=== PATIENT | female | born 1995 | race African-American/Black ===

== ENCOUNTER 2025-08-03 15:03 | Emergency (ER) | payer OTHER, SELFPAY ==
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
[2025-08-03 15:10] VITALS: BP 133/97; PULSE 107; RESP 14; TEMP 36.5; O2SAT 97
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
[2025-08-03] MEDS: HYDROcodone/acetaminophen (*CRX) 5-325 MG TABLET 1 TAB PO ×2 (15:34→19:53)
[2025-08-03 15:45] LABS: Add Urine Microscopic? NO; Appearance Urine Clear (Clear); Glucose Urine UA Negative (Negative); Leukocyte Esterase Ur Negative LEU/UL (Negative); Nitrate Urine Negative (Negative); Specific Grav Ur 1.003 (1.001-1.035)
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
--- OUTSIDE RECORDS SUMMARY | 2025-08-03 15:56 | XMS_ITS | Clinical Summary ---
Author Organization [facility] Address [address] [place] [address] Phone Care Team Providers Care Agricultural Engineer Name Role Phone Praveen Andrade MD Primary Care Provider [phone] Allergies Active Allergy Reactions Criticality Noted Date Comments Cefprozil Hives 01/28/2016 Cephalosporins Hives,Rash 10/01/2019 Reaction: Hives, Skin Rash, Codeine Nausea,Vomiting 03/14/2025 Latex Rash 10/01/2019 Naproxen Nausea 10/01/2019 Pineapple Hives 10/01/2019 Medications No known medications Active Problems No known active problems Encounters Date Type Department Care Team Description 07/04/2025 Telephone [facility] [address] [address] Elysia Anna Patient Outreach 07/04/2025 Telephone [facility] [address] [place] [address] Chari Atkins Patient Outreach 07/02/2025 5:57 PM CDT - 07/02/2025 6:46 PM CDT Emergency [facility] Emergency [address] [place] [address] Wilton Moreno DO Visit for suture removal Discharge Disposition: Discharged to home or Selfcare 07/02/2025 Travel from Last 3 Months Immunizations Immunization Administration Dates Next Due TDAP Vaccine 03/19/2024,03/25/2020 Family History Medical History Relation Name Comments Miscarriage Mother Relation Name Status Comments Mother Social History Tobacco Use Types Packs/Day Years Used Date Smoking Tobacco: Never Smokeless Tobacco: Never Tobacco Cessation:Counseling Given: Not Answered Alcohol Use Standard Drinks/Week Comments Yes 0 (1 standard drink = 0.6 oz pur e alcohol) Ocassional Sexually Active Control Partners Comments Yes Oral Contraceptive Male Comments No Sex and Gender Information Value Date Recorded Sex Assigned at Female 03/19/2024 3:44 AM CDT Legal Sex Female 9:32 PM CDT Gender Identity Female 03/19/2024 3:44 AM CDT Sexual Orientation Not on file Last Filed Vital Signs Vital Sign Reading Time Taken Comments Blood Pressure 128/75 07/02/2025 6:45 PM CDT Pulse 112 07/02/2025 6:45 PM CDT Temperature 37.5 C (99.5 F) 07/02/2025 6:45 PM CDT Respiratory Rate 15 07/02/2025 6:45 PM CDT Oxygen Saturation 100% 07/02/2025 6:45 PM CDT Inhaled Oxygen Concentration - - Weight 60.3 kg (132 lb 15 oz) 07/02/2025 5:52 PM CDT Height 170.2 cm (5' 7) 07/02/2025 5:52 PM CDT Body Mass Index 20.82 07/02/2025 5:52 PM CDT Plan of Treatment Health Maintenance Due Date Last Done Comments Hepatitis C Virus (HCV) Screening 1994 Varicella Immunization (2 of 2 - 2-dose childhood series) 09/01/2005 06/09/2005 Pap Smear 2015 Cervical Cancer Screening (CCS) 2024 HPV/Cotest 2024 Influenza Immunization (#1) 2025 SARS-COV-2 Immunization ( season) 2025 Td Immunization Every 10 Years (Adults With 1 Tdap) 06/06/2035 06/06/2025, 12/08/2024, 03/19/2024, Additional history exists Respiratory Syncytial Virus (RSV) Immunization (Adult) (1 - 1-dose 75+ series) 2069 Hepatitis B Immunization Completed 995, 1994, 1994 Human Papillomavirus (HPV) Immunization Completed 01/14/2011, 01/22/2009, 07/20/2008 Meningococcal Immunization (ACWY) Completed 01/14/2011 DTaP/Tdap/Td Immunization Discontinued 2024, 12/08/2024, 03/19/2024, Additional history exists Pneumococcal Immunization Combined Aged Out No longer eligible based on patient's age to complete this topic Rotavirus Immunization Aged Out No lo nger eligible based on patient's age to complete this topic Procedures Procedure Name Priority Date/Time Associated Diagnosis Comments SUTURE REMOVAL Routine 07/02/2025 6:09 PM CDT from Last 3 Months Results * Suture Removal (07/02/2025 6:09 PM CDT) Narrative Wilton Moreno DO - 07/02/2025 6:09 PM CDT Wilton Moreno DO 07/02/2025 6:34 PM Suture Removal Performed by: Wilton Moreno DO Authorized by: Wilton Moreno DO Consent: Consent obtained: Verbal Consent given by: Patient Risks, benefits, and alternatives were discussed: yes Risks discussed: Bleeding, pain and wound separation Alternatives discussed: No treatment, delayed treatment, alternative treatment, observation and referral [place] protocol: Procedure explained and questions answered to patient or proxy's satisfaction: yes Relevant documents present and verified: yes Test results available: yes Imaging studies available: yes Required blood products, implants, devices, and special equipment available: yes Site/side marked: yes Immediately prior to procedure, a time out was called: yes Patient identity confirmed: Verbally with patient and arm band Location: Location: Trunk Trunk location: Abdomen Procedure details: Anesthesia: No Post-Op Global: No Wound appearance: Good wound healing and no signs of infection (open area to lower portion she has drained) us Wilton Moreno DO PROCEDURE/MINOR SURGICA L ORDERABLES Final Result from Last 3 Months Insurance MEDICAID AETNA [facility] MEDICAID [employer] [facility] [place] [facility] MEDICAID [employer] Advance Directives * Full Code (Latest Code Status on File) Date Activated Date Inactivated Comments 05/26/2016 6:57 AM 05/28/2016 10:58 PM CPR-Full Tr eatment: FULL ARREST: Attempt Resuscitation/CPR wit intubation and mechanical ventilation. PRE-ARREST: Use entire range of life support measures to stabilize the patient. * Full Code Date Activated Date Inactivated Comments 05/21/2016 6:57 PM 05/23/2016 1:22 PM CPR-Full Lucrecia tment: FULL ARREST: Attempt Resuscitation/CPR wit intubation and mechanical ventilation. PRE-ARREST: Use entire range of life support measures to stabilize the patient. * Full Code Date Activated Date Inactivated Comments 05/07/2016 3:36 PM 05/07/2016 9:12 PM CPR-Full Sina atment: FULL ARREST: Attempt Resuscitation/CPR wit intubation and mechanical ventilation. PRE-ARREST: Use entire range of life support measures to stabilize the patient. * Full Code Date Activated Date Inactivated Comments 02/14/2016 12:53 PM 02/14/2016 5:26 PM CPR-Full Lucrecia tment: FULL ARREST: Attempt Resuscitation/CPR wit intubation and mechanical ventilation. PRE-ARREST: Use entire range of life support measures to stabilize the patient. Care Teams Agricultural Engineer Relationship Specialty Start Date End Date Praveen Andrade MD [address] [place] [address] [facility] [address] [place] [address] PCP - General Family Medicine 01/28/16
--- OUTSIDE RECORDS SUMMARY | 2025-08-03 15:56 | XMS_ITS | Clinical Summary ---
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
[2025-08-03 16:08] LABS: Cannabinoid Screen Urine Positive (Negative)
[2025-08-03] MEDS: SODIUM CHLORIDE 0.9% IV 1,000 ML 999 ML IV CONT ×2 (16:09→18:41)
[2025-08-03] MEDS: Please add drug allergy info to patient profile. 1 EACH XX (16:09)
[2025-08-03 16:11] VITALS: BP 104/64; PULSE 75; RESP 14; O2SAT 95
[2025-08-03 16:15] LABS: Hematocrit 33.2 % (37.0-47.0); Hemoglobin 10.4 g/dL (12.0-15.0); Immature Granulocyte Percent A 0.0 % (0-0.5); Lymphocytes Absolute Auto 2.07 K/mm3 (0.9-3.2); Mean Corpuscular HGB Conc 31.3 g/dl (32-36); Mean Corpuscular Hemoglobin 29.7 pg (26-34); Mean Corpuscular Volume 94.9 fl (80-100); Nucleated Red Blood Cells Absolute Auto 0.000 K/mm3 (0.0-0.012); Nucleated Red Blood Cells Perc 0.0 % (0.0-0.2); Platelet Count Result 170 k/mm3 (150-375); Red Blood Count 3.50 M/mm3 (4.2-5.4); White Blood Count 4.3 K/mm3 (4.5-10.0)
[2025-08-03 16:31] LABS: Alanine Aminotransferase 10 U/L (6-35); Albumin Level 3.8 g/dL (3.5-5.1); Alkaline Phosphatase 124 U/L (38-126); Anion Gap 10 mmol/L (4-12); Aspartate Amino Transferase 23 U/L (14-36); Bilirubin,Total 0.3 mg/dL (0.2-1.3); Blood Urea Nitrogen 5 mg/dL (7-17); Calcium 7.8 mg/dL (8.4-10.2); Carbon Dioxide 24 mmol/L (22-30); Chloride 113 mmol/L (98-107); Estimated CRCL calculation 119 ml/min; Estimated Glomerular Filt Rate > 60; Glucose 100 mg/dL (65-110); Lipase 372 U/L (23-300); Potassium 3.4 mmol/L (3.4-5.0); Sodium 147 mmol/L (137-145); Total Protein 7.3 g/dL (6.3-8.2)
[2025-08-03] MEDS: ONDANSETRON INJ 4 MG/2 ML VIAL IV PUSH (18:42)
[2025-08-03] MEDS: THIAMINE HCL 200 MG/2 ML VIAL 100 MG IV PUSH (18:44)
[2025-08-03] MEDS: MORPHINE SULFATE (*CRX) 4 MG/ML INJ 2 MG IV PUSH (18:45)
[2025-08-03] MEDS: PIPERACILLIN/TAZOBACTAM SOD 3.375 GM in SODIUM CHLORIDE 0.9% IV 50 ML 100 ML IVPB (18:47)
[2025-08-03 18:48] LABS: INR 1.1; Prothrombin Time 13.9 Seconds (11.1-14.7)
[2025-08-03 18:49] LABS: CRP < 0.5 mg/dL (<1.0); Partial Thromboplastin Time 30.5 Seconds (22.3-36.8)
[2025-08-03 18:53] LABS: Magnesium 1.7 mg/dL (1.6-2.3)
[2025-08-03] MEDS: FOLIC ACID 1 MG/0.2 ML INJ IV PUSH (18:55)
[2025-08-03 20:14] VITALS: BP 144/97; PULSE 88; RESP 18; O2SAT 97
[2025-08-03 23:38] VITALS: BP 127/90; PULSE 75; RESP 20; O2SAT 95
[2025-08-04 04:28] VITALS: PULSE 76; RESP 20; O2SAT 98
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
[2025-08-06 11:47] LABS: BEDSIDEPREGUCG Negative (Negative)
== END 2025-08-04 05:12 | disposition home or self-care (01) ==
PROVIDERS: Student in an Organized Health Care Education/Training Program; Emergency Provider Registered Nurse
DX: F10.129 Alcohol abuse with intoxication, unspecified (principal); Y90.9 Presence of alcohol in blood, level not specified; R10.9 Unspecified abdominal pain; F12.90 Cannabis use, unspecified, uncomplicated; Z98.890 Other specified postprocedural states
CPT/HCPCS: 36415; 73030; 74177; 80053; 80307; 81003; 81025; 82077; 83605; 83690; 83735; 84100; 85025; 85610; 85730; 86140; 96361; 96365; 96375; 99284; A9270; J2270; J2405; J2543; J3411; J7030; Q9967